=== PATIENT | female | born 1945 | race Caucasian/White ===

== ENCOUNTER → 2023-05-02 12:08 | Outpatient (REF) | payer MEDICARE, OTHER, SELFPAY | LOC: MRI 3T 12:08 | PROVIDERS: ATTENDING PHYSICIAN Orthopaedic Surgery; FAMILY PHYSICIAN Internal Medicine | DX: S80.02XA Contusion of left knee, initial encounter (principal) | CPT/HCPCS: 73721 ==

== ENCOUNTER → 2023-09-09 12:35 | Outpatient (REF) | payer MEDICARE, OTHER, SELFPAY | LOC: RSP 12:35 | PROVIDERS: ATTENDING PHYSICIAN Internal Medicine Pulmonary Disease; OTHER PHYSICIAN Internal Medicine; OTHER PHYSICIAN Specialist | DX: J84.9 Interstitial pulmonary disease, unspecified (principal) | CPT/HCPCS: 94727; 94729; 88738; 94010; 94761 ==

== ENCOUNTER → 2024-03-18 07:28 | Outpatient (REF) | payer MEDICARE, OTHER, SELFPAY | LOC: MRI 07:28 | PROVIDERS: ATTENDING PHYSICIAN Orthopaedic Surgery; FAMILY PHYSICIAN Internal Medicine | DX: M23.322 Other meniscus derangements, posterior horn of medial meniscus, left knee (principal) | CPT/HCPCS: 73721 ==